=== PATIENT | female | born 1975 | race Caucasian/White ===

== ENCOUNTER 2024-06-14 09:37 | Outpatient (CLI) | payer OTHER, SELFPAY | END 2024-06-14 09:38 | disposition home or self-care (01) | LOC: LKVREF 09:41 | PROVIDERS: PCP Family Medicine; Visit Provider Family Medicine | DX: I10 Essential (primary) hypertension (principal); E11.9 Type 2 diabetes mellitus without complications; Z13.220 Encounter for screening for lipoid disorders | CPT/HCPCS: 80053; 80061; 82043; 82570 ==

== ENCOUNTER 2025-08-31 08:32 | Outpatient (CLI) | payer OTHER, SELFPAY | END 2025-08-31 08:33 | disposition home or self-care (01) | LOC: LKVREF 08:34 | PROVIDERS: PCP Family Medicine; Visit Provider Family Medicine | DX: I10 Essential (primary) hypertension (principal) | CPT/HCPCS: 80061 ==